=== PATIENT | female | born 1975 | race Caucasian/White ===

== ENCOUNTER 2018-03-08 13:49 | Emergency (ER) | payer BC ==
[2018-03-08] MEDS ORDERED: ONDANSETRON 4 MG/2 ML VIAL IVP ONE ×2 (17:18→23:00)
[2018-03-08] MEDS ORDERED: MECLIZINE HCL 25 MG TAB PO ONE (17:18)
[2018-03-08] MEDS ORDERED: LORazepam 2 MG/ML INJ IVP ONE (17:18)
--- NOTE | 2018-03-08 17:20 | EDPHY ---
H & P Stated Complaint: Dizzy/Nausea Time Seen by Provider: 03/08/18 17:11 HPI/ROS: CHIEF COMPLAINT: Dizziness HISTORY OF PRESENT ILLNESS: 43-year-old female history of ulcerative colitis, awoke yesterday morning with dizziness, sensation of room spinning, nausea, mild non thunderclap headache. Symptoms waxed and waned throughout the day. Symptoms better if closing her eyes or holding her head still, worse if moving her head side to side. No hearing loss. No tinnitus. No barotrauma. No head or neck trauma or manipulation. No recent cold or flu-like symptoms. No sore throat. No otalgia. PRIMARY CARE PROVIDER:Nancy Bustillo PA-C REVIEW OF SYSTEMS: 10 systems reviewed and negative with the exception of the elements mentioned in the history of present illness PAST MEDICAL & SURGICAL HISTORY: Ulcerative colitis SOCIAL HISTORY: nonsmoker no drug use PHYSICAL EXAM (Prior to examination, patient consented to physical exam, hands were washed and my usual and customary physical exam procedures followed) 1) GENERAL: Well-developed, well-nourished, alert and oriented. Appears to be in no acute distress. 2) HEAD: Normocephalic, atraumatic 3) HEENT: Pupils equal, round, reactive to light bilaterally. Sclera anicteric. Right lateral nystagmus from both eyes noted. Nasopharynx, oropharynx, clear, no lesions. MoistDry mucous membranes. Ears bilaterally with normal tympanic membranes. 4) NECK: Full range of motion, no meningeal signs. 5) LUNGS: Clear auscultation bilaterally, no wheezes, no rhonchi, no retractions. 6) HEART: Regular rate and rhythm, no murmur, no heave, no gallop. 7) ABDOMEN: No guarding, no rebound, no focal tenderness, negative McBurney's, negative Palacios's, negative Rovsing's, negative peritoneal sign, 8) MUSCULOSKELETAL: Moving all extremities, no focal areas of tenderness, no obvious trauma. No peripheral edema or discoloration. 9) BACK: No CVA tenderness, no midline vertebral tenderness, no fluctuance, no step-off, no obvious trauma, no visual or palpable abnormality. 10) SKIN: No rash, no petechiae. 11) Psychiatric: Patient is oriented X 3, there is no agitation. 12) NEURO: Awake, alert, and oriented to person, place and time. Answers questions appropriately. There were no obvious focal neurologic abnormalities. No cerebellar dysfunction. Cranial nerves 2 through to 12 intact. Normal steady gait. Upper and lower extremities bilaterally with strength 5 / 5, reflexes 2+. DIFFERENTIAL DIAGNOSIS: In no particular order including but not limited to Meniere's disease, benign positional vertigo, peripheral lesion, central lesion , cervico-cranial vessel dissection - Personal History LMP (Females 10-55): Irregular Current Tetanus/Diphtheria Vaccine: Yes - Medical/Surgical History Hx Asthma: No Hx Chronic Respiratory Disease: No Hx Diabetes: No Hx Cardiac Disease: No Hx Renal Disease: No Hx Cirrhosis: No Hx Alcoholism: No Other PMH: ulcerative collitis, endometriosis - Social History Smoking Status: Never smoked Constitutional: Initial Vital Signs Temperature (C) 37.7 C 03/08/18 14:11 Heart Rate 72 03/08/18 14:11 Respiratory Rate 18 03/08/18 14:11 Blood Pressure 107/74 03/08/18 14:11 O2 Sat (%) 98 03/08/18 14:11 O2 Delivery Mode Room Air Allergies/Adverse Reactions: No Known Allergies Allergy (Unverified 03/08/18 14:16) Home Medications: Medication Instructions Recorded Fish Oil 1,000 mg Softgel 03/08/18 Magnesium 03/08/18 Meclizine HCl [Meclizine HCl 25 mg 25 mg PO QID PRN #15 tab 03/08/18 (RX,OTC)] Methylphenidate 03/08/18 Ondansetron Odt [Zofran Odt] 4 mg PO Q4PRN PRN #10 tab 03/08/18 Pentasa 500 mg 03/08/18 Sertraline HCl 03/08/18 Medical Decision Making - Diagnostics Imaging Results: Imaging Impressions Brain MRI 03/08/18 18:47 Impression: 1. No acute infarct, acute hemorrhage, hydrocephalus, or mass effect. 2. Minimal linear enhancement of the left 7th/8th cranial nerves, which suggests an inflammatory process, without a focal round mass. Consider follow- up imaging. 3. No intraaxial enhancing lesions. 4. Mild left maxillary sinusitis. 5. No brainstem or cerebellar infarcts or enhancing lesions. Findings and recommendations discussed with Emergency Department Physician Field Account Director, Jr Michaels PA-C, at 2139 hours, on March 08, 2018. Final report concurs with initial preliminary interpretation. Images reviewed by myself ED Course/Re-evaluation: 5:20 p.m.: Patient evaluated by myself. She does note sudden-onset dizziness with bilateral eye right-sided nystagmus. Will administer IV fluids, meclizine , Ativan, Zofran and plan on possible Marty maneuver. 6:20 p.m.: Re-evaluation after IV fluids Zofran Ativan and meclizine. No Marty maneuver. She notes significant improvement in symptoms. She is able to move her head around without eliciting dizziness. She remains with a nonfocal exam. On previous exam patient is symptomatic she was noted to have bilateral high right-sided nystagmus . She does complain however of left eye blurry vision and on exam has notable left eye nystagmus only. When the patient cover his left eye she is asymptomatic and there is no nystagmus noted. Wound patient covered her right eye left eye nystagmus is noted as well as blurry vision. The patient otherwise has a nonfocal exam states that she is feeling improvement. I discussed this with secondary supervising physician n Dr. Eri Zuñiga in the ER. Will obtain MRI with specific attention to internal auditory canal. 9:50 p.m.: Re-evaluation, discussed her MRI results. Her nystagmus is now present in bilateral eyes, to the right. Will perform Marty maneuvers. 10:44 p.m.: Marty maneuvers completed. Re-evaluation. Repeat neurologic examination remains nonfocal. patient attempted to ambulate at this time. She is able to ambulate without assistance although notes continued dizziness and blurry vision which does improve when she was on a glasses. I had a lengthy discussion with the patient has been at this time. I offered admission to the hospital however she would like to be discharged stating that she thinks she would feel better if she gets some rest at home in her own bed. I will discharge her home with meclizine and Zofran prescription and Neurology follow- up information. Definitely if she develops new or worsening symptoms to return to the ER immediately for re-evaluation. - Data Points Laboratory Results: Laboratory Results 03/08/18 17:28 03/08/18 17:28 03/08/18 03/08/18 03/08/18 17:28 17:28 17:28 WBC 7.29 10^3/uL 10^3/uL (3.80-9.50) RBC 4.49 10^6/uL 10^6/uL (4.18-5.33) Hgb 15.4 g/dL g/dL (12.6-16.3) Hct 44.6 % % (38.0-47.0) MCV 99.3 fL fL (81.5-99.8) MCH 34.3 pg H pg (27.9-34.1) MCHC 34.5 g/dL g/dL (32.4-36.7) RDW 14.2 % % (11.5-15.2) Plt Count 466 10^3/uL H 10^3/uL (150-400) MPV 9.5 fL fL (8.7-11.7) Neut % (Auto) 77.1 % H % (39.3-74.2) Lymph % (Auto) 15.6 % % (15.0-45.0) [place] % (Auto) 5.8 % % (4.5-13.0) Eos % (Auto) 0.4 % L % (0.6-7.6) Baso % (Auto) 0.7 % % (0.3-1.7) Nucleat RBC Rel Count 0.0 % % (0.0-0.2) Absolute Neuts (auto) 5.62 10^3/uL 10^3/uL (1.70-6.50) Absolute Lymphs (auto) 1.14 10^3/uL 10^3/uL (1.00-3.00) Absolute Monos (auto) 0.42 10^3/uL 10^3/uL (0.30-0.80) Absolute Eos (auto) 0.03 10^3/uL 10^3/uL (0.03-0.40) Absolute Basos (auto) 0.05 10^3/uL 10^3/uL (0.02-0.10) Absolute Nucleated RBC 0.00 10^3/uL 10^3/uL (0-0.01) Immature Gran % 0.4 % % (0.0-1.1) Immature Gran # 0.03 10^3/uL 10^3/uL (0.00-0.10) Sodium 135 mEq/L mEq/L (135-145) Potassium 4.3 mEq/L mEq/L (3.3-5.0) Chloride 103 mEq/L mEq/L (97-110) Carbon Dioxide 25 mEq/l mEq/l (22-31) Anion Gap 7 mEq/L mEq/L (6-14) BUN 19 mg/dL mg/dL (7-23) Creatinine 0.8 mg/dL mg/dL (0.6-1.0) Estimated GFR > 60 Glucose 95 mg/dL mg/dL (70-100) Calcium 9.7 mg/dL mg/dL (8.5-10.4) Beta HCG, Qual NEGATIVE Medications Given: Discontinued Medications Lorazepam (Ativan Injection) 1 mg IVP EDNOW ONE Stop: 03/08/18 17:19 Last Admin: 03/08/18 17:42 Dose: 1 mg Meclizine HCl (Meclizine Hcl) 25 mg PO EDNOW ONE Stop: 03/08/18 17:19 Last Admin: 03/08/18 17:45 Dose: 25 mg Ondansetron HCl (Zofran) 4 mg IVP EDNOW ONE Stop: 03/08/18 17:19 Last Admin: 03/08/18 17:42 Dose: 4 mg Ondansetron HCl (Zofran Odt 4 Mg Prepack#2) 1 btl TAKEHOME EDNOW ONE Stop: 03/08/18 22:54 Last Admin: 03/08/18 22:58 Dose: 1 btl Ondansetron HCl (Zofran) 4 mg IVP EDNOW ONE Stop: 03/08/18 23:01 Last Admin: 03/08/18 23:02 Dose: 4 mg Departure - Departure Disposition: Home, Routine, Self-Care Clinical Impression: Dizziness Condition: Good Instructions: Meclizine (By mouth), Ondansetron (By mouth), Dizziness (ED) Additional Instructions: Return to the ER if you develop new or worsening symptoms, if you develop intractable vomiting or any other symptoms that concern you. Referrals: Nancy Bustillo PA [Primary Care Provider] - 03/12/18 Chente Mcpherson MD [Medical Doctor] - 2-3 days, call for appt. Prescriptions: Meclizine HCl [Meclizine HCl 25 mg (RX,OTC)] 25 mg PO QID PRN #15 tab PRN Reason: Dizziness Ondansetron Odt [Zofran Odt] 4 mg PO Q4PRN PRN #10 tab PRN Reason: Nausea
[2018-03-08 17:37] LABS: PLATELET COUNT 466 10^3/uL (150-400)
[2018-03-08] MEDS ORDERED: GADOBUTROL 10 ML VIAL IVP ONE (20:39)
[2018-03-08] MEDS ORDERED: ONDANSETRON 4MG PREPACK#2 BTL TAKEHOME ONE (22:53)
[2018-03-08 23:07] VITALS: BP 119/70
== END 2018-03-08 23:07 | disposition home or self-care (01) ==
DX: R42 Dizziness and giddiness (principal)
CPT/HCPCS: 96374; A9585; J2060; J2405

== ENCOUNTER 2018-03-10 09:57 | Emergency (ER) | payer BC ==
[2018-03-10 10:27] LABS: PLATELET COUNT 451 10^3/uL (150-400)
--- NOTE | 2018-03-10 10:43 | EDPHY ---
H & P Stated Complaint: dizziness & L ear thrt pain continue--facial asymmetry since ? unk Time Seen by Provider: 03/10/18 10:30 HPI/ROS: CHIEF COMPLAINT: Left facial weakness HISTORY OF PRESENT ILLNESS: 43-year-old female presents with left-sided facial weakness. She was seen in this emergency department 2 days ago for vertigo. MRI of the brain demonstrated linear enhancement of the left 7th and 8th cranial nerves. Vertigo resolved after meclizine and IV Ativan. The patient felt better and went home. She has continued to have vertigo in the past 2 days , but it has improved. She continues to feel slightly unstable with ambulation. This morning she awoke with left facial weakness and decreased hearing in the left ear. No headache or fever. REVIEW OF SYSTEMS: complete 10 point ROS reviewed and is negative except for the noted elements in the HPI - Personal History LMP (Females 10-55): Unknown - Medical/Surgical History Hx Asthma: No Hx Chronic Respiratory Disease: No Hx Diabetes: No Hx Cardiac Disease: No Hx Renal Disease: No Hx Cirrhosis: No Hx Alcoholism: No Hx HIV/AIDS: No Hx Splenectomy or Spleen Trauma: No Other PMH: ulcerative colitis, endometriosis - Social History Smoking Status: Never smoked Alcohol Use: Sober Drug Use: None Additional Social History: with children - Physical Exam Exam: General Appearance: Alert, pleasant Eyes: Pupils equal and round, no conjunctival pallor or injection, horizontal nystagmus ENT, Mouth: Mucous membranes moist Neck: Normal inspection Respiratory: Lungs are clear to auscultation Cardiovascular: Regular rate and rhythm Gastrointestinal: Abdomen is soft and nontender Neurological: A&O, left facial weakness including the forehead, decreased hearing left ear, peripheral motor/sensory intact Skin: Warm and dry Extremities: Normal inspection Psychiatric: Mood and affect normal Constitutional: Initial Vital Signs Temperature (C) 36.8 C 03/10/18 10:02 Heart Rate 82 03/10/18 10:02 Respiratory Rate 20 03/10/18 10:02 Blood Pressure 132/80 H 03/10/18 10:02 O2 Sat (%) 99 03/10/18 10:02 O2 Delivery Mode Room Air Allergies/Adverse Reactions: No Known Allergies Allergy (Verified 03/10/18 09:59) Home Medications: Medication Instructions Recorded Fish Oil 1,000 mg Softgel 03/08/18 Magnesium 03/08/18 Meclizine HCl [Meclizine HCl 25 mg 25 mg PO QID PRN #15 tab 03/08/18 (RX,OTC)] Pentasa 500 mg 03/08/18 Sertraline HCl 03/08/18 Purinethol 50 mg (*) 03/10/18 Valacyclovir HCl [Valtrex] 1,000 mg PO TID #21 tab 03/10/18 predniSONE 1 tab PO DAILY #15 tab 03/10/18 Medical Decision Making Procedures: Procedure: Lumbar puncture. Indication: Vertigo, left facial weakness, abnormal MRI After verbal informed consent from patient explaining the risks of lumbar puncture including infection, bleeding, spinal headache and neurologic damage, a lumbar puncture was performed with the patient in the sitting position after the patient was prepped and draped in the usual fashion. The L4-5 interspace was anesthetized with 1% lidocaine. Approximately 4 cc of clear fluid was obtained. Opening pressure was not obtained. There were no complications. The procedure was performed by myself. ED Course/Re-evaluation: Patient presents with left sided facial weakness and an abnormal MRI. I consulted Dr. Arzola on this patient's arrival. He suggests an LP to rule out VZV meningitis. Repeat MRI not indicated. Prior MRI explains sx today. If the LP LP results are normal, plan to discharge home on Valtrex and prednisone. Will see the patient in the office this week. 12:45 p.m.-initial LP results reveal no white blood cells and normal protein. Gram stain is negative. No evidence of infection. Decadron 10 mg IV given. Warning signs discussed and follow-up instructions given. The patient will follow up with Dr. Arzola in the office. Differential Diagnosis: Differential diagnosis includes though not limited to be CV meningitis, encephalitis, TIA, CVA, Holt's palsy - Data Points Laboratory Results: Laboratory Results 03/10/18 10:20 03/10/18 10:20 03/10/18 03/10/18 03/10/18 12:20 11:55 11:55 WBC RBC Hgb Hct MCV MCH MCHC RDW Plt Count MPV Neut % (Auto) Lymph % (Auto) [place] % (Auto) Eos % (Auto) Baso % (Auto) Nucleat RBC Rel Count Absolute Neuts (auto) Absolute Lymphs (auto) Absolute Monos (auto) Absolute Eos (auto) Absolute Basos (auto) Absolute Nucleated RBC Immature Gran % Immature Gran # Sodium Potassium Chloride Carbon Dioxide Anion Gap BUN Creatinine Estimated GFR Glucose Calcium CSF Tube Number 1 4 CSF Appearance CLEAR CLEAR (CLEAR) (CLEAR) CSF Color COLORLESS COLORLESS (COLORLESS) (COLORLESS) CSF Supernatant COLORLESS COLORLESS (COLORLESS) (COLORLESS) CSF WBC 2 /mm3 /mm3 0 /mm3 /mm3 (0-5) (0-5) CSF RBC 26 /mm3 H /mm3 5 /mm3 H /mm3 (0-0) (0-0) CSF Glucose 57 mg/dL mg/dL (50-75) CSF Total Protein 51 mg/dL mg/dL (12-60) CSF HSV I&II DNA (PCR) Pending 03/10/18 03/10/18 10:20 10:20 WBC 5.58 10^3/uL 10^3/uL (3.80-9.50) RBC 4.40 10^6/uL 10^6/uL (4.18-5.33) Hgb 15.2 g/dL g/dL (12.6-16.3) Hct 44.4 % % (38.0-47.0) MCV 100.9 fL H fL (81.5-99.8) MCH 34.5 pg H pg (27.9-34.1) MCHC 34.2 g/dL g/dL (32.4-36.7) RDW 14.6 % % (11.5-15.2) Plt Count 451 10^3/uL H 10^3/uL (150-400) MPV 9.4 fL fL (8.7-11.7) Neut % (Auto) 63.6 % % (39.3-74.2) Lymph % (Auto) 24.7 % % (15.0-45.0) [place] % (Auto) 7.9 % % (4.5-13.0) Eos % (Auto) 2.3 % % (0.6-7.6) Baso % (Auto) 1.1 % % (0.3-1.7) Nucleat RBC Rel Count 0.0 % % (0.0-0.2) Absolute Neuts (auto) 3.55 10^3/uL 10^3/uL (1.70-6.50) Absolute Lymphs (auto) 1.38 10^3/uL 10^3/uL (1.00-3.00) Absolute Monos (auto) 0.44 10^3/uL 10^3/uL (0.30-0.80) Absolute Eos (auto) 0.13 10^3/uL 10^3/uL (0.03-0.40) Absolute Basos (auto) 0.06 10^3/uL 10^3/uL (0.02-0.10) Absolute Nucleated RBC 0.00 10^3/uL 10^3/uL (0-0.01) Immature Gran % 0.4 % % (0.0-1.1) Immature Gran # 0.02 10^3/uL 10^3/uL (0.00-0.10) Sodium 139 mEq/L mEq/L (135-145) Potassium 4.4 mEq/L mEq/L (3.3-5.0) Chloride 104 mEq/L mEq/L (97-110) Carbon Dioxide 29 mEq/l mEq/l (22-31) Anion Gap 6 mEq/L mEq/L (6-14) BUN 19 mg/dL mg/dL (7-23) Creatinine 0.8 mg/dL mg/dL (0.6-1.0) Estimated GFR > 60 Glucose 76 mg/dL mg/dL (70-100) Calcium 9.5 mg/dL mg/dL (8.5-10.4) CSF Tube Number CSF Appearance CSF Color CSF Supernatant CSF WBC CSF RBC CSF Glucose CSF Total Protein CSF HSV I&II DNA (PCR) Microbiology Results: MICROBIOLOGY 03/10/18 11:55 Cerebral Spinal Fluid Gram Stain - Final Medications Given: Discontinued Medications Dexamethasone (Decadron Injection) 10 mg IVP EDNOW ONE Stop: 03/10/18 12:46 Last Admin: 03/10/18 12:54 Dose: 10 mg Sodium Chloride (Ns) 1,000 mls @ 0 mls/hr IV ONCE ONE; Wide Open PRN Reason: Protocol Stop: 03/10/18 12:07 Last Admin: 03/10/18 12:08 Dose: 1,000 mls Departure - Departure Disposition: Home, Routine, Self-Care Clinical Impression: Holt's palsy Condition: Good Instructions: Holt Palsy (ED) Additional Instructions: Your MRI shows inflammation of the 7th and 8th cranial nerves. This inflammation is causing the facial weakness and decreased hearing. This is most likely caused by a virus. I have prescribed a steroid to reduce the inflammation and Valtrex to treat a possible viral infection. Referrals: Nancy Bustillo PA [Primary Care Provider] - As per Instructions Tod Arzola DO [Doctor of Osteopathy] - As per Instructions (Call tomorrow morning to make an appointment.) Prescriptions: predniSONE 1 tab PO DAILY #15 tab Valacyclovir HCl [Valtrex] 1,000 mg PO TID #21 tab
[2018-03-10] MEDS ORDERED: NS 1,000 ML IV ONE (12:06)
[2018-03-10 12:30] VITALS: BP 107/62
[2018-03-10] MEDS ORDERED: DEXAMETHASONE 10 MG/ML VIAL IVP ONE (12:45)
[2018-03-10] MEDS ORDERED: DEXAMETHASONE 4 MG/ML VIAL ONE (12:48)
== END 2018-03-10 13:11 | disposition home or self-care (01) ==
PROC: 009U3ZX Drainage of Spinal Canal, Percutaneous Approach, Diagnostic (ICD-10-PCS; principal; 2018-03-10)
DX: G51.0 Bell's palsy (principal); E86.9 Volume depletion, unspecified
CPT/HCPCS: 96374; J1100

== ENCOUNTER 2018-03-12 11:26 | Emergency (ER) | payer BC ==
[2018-03-12] MEDS ORDERED: ACETAMINOPHEN 500 MG TAB PO ONE (11:33)
[2018-03-12] MEDS ORDERED: NS 1,000 ML IV ONE (12:49)
--- NOTE | 2018-03-12 13:42 | EDPHY ---
H & P Time Seen by Provider: 03/12/18 12:57 HPI/ROS: HPI Headache, facial numbness. 43-year-old female by private vehicle with her . This patient was seen in our emergency department on March 08 with complaint of with complaint of vertigo. She had an MRI of the brain at that time with and without contrast. This showed minimal linear enhancement of her 7th and 8th cranial nerves on the left side likely representing some mild inflammation. She then returned on March 10. She was seen for headache as well as left-sided facial upper and lower weakness and numbness. Neurology was consulted. This was Dr. Redding. He recommended an LP be performed in the emergency department. This was done and resulted as normal. Her HSV viral assay on this study was normal as well. 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 She was prescribed Valtrex as well as prednisone. She reports that she has been taking her Valtrex and prednisone since Sunday. She reports that last night she had a moderate headache. She reports that this morning she then woke up and had a fever and felt that her facial weakness and numbness was worse. She was instructed follow up with Neurology, Dr. Mo Jain this week for re- evaluation. However, she was not able to get an appointment until March 20. She took some Tylenol of her own prior to coming to the emergency department and her headache has resolved. She now complains of persisting left- sided facial weakness. She denies camping on the [facility] or [facility]. She states in October she was bike riding through the [place] in [place]. She does not recall any tick bites. 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 ROS: Constitutional: As above, no chills. No weakness. Eyes: No discharge. No changes in vision. ENT: No sore throat. No nasal congestion or rhinorrhea. Respiratory: No cough. No shortness of breath. Cardiac: No chest pain, no palpitations. Gastrointestinal: No abdominal pain, no vomiting, no diarrhea. Genitourinary: No hematuria. No dysuria or increased frequency with urination. Musculoskeletal: No back pain. No neck pain. No myalgias or arthralgias. Skin: No rashes. Neurological: As above. As above. Past medical history: Ulcerative colitis, endometriosis. Social history: Nonsmoker. Here with her . No alcohol. Physical Exam: General Appearance: Alert, no distress. This patient is responding to questions appropriately and in full sentences. This patient appears well- hydrated and well-nourished. Eyes: Pupils equal and round no pallor or injection. No lid edema, erythema or injection. ENT, Mouth: Mucous membranes are moist. The pharyngeal tissues are unremarkable. No edema or swelling. No asymmetry suggestive of abscess. No erythema or exudates. No tongue deviation. Respiratory: There are no retractions, lungs are clear to auscultation with good air movement bilaterally. Cardiovascular: Regular rate and rhythm. No murmur. Gastrointestinal: Abdomen is soft and nontender, no masses, bowel sounds normal. No focal tenderness at McBurney's point. No Palacios sign. Neurological: Motor sensory function is grossly intact. Cranial nerves are normal except for an upper and lower facial palsy on the left. Gait is normal. Skin: Warm and dry, no rashes. Musculoskeletal: Neck is supple and nontender. No pain on flexion of her neck. No cervical, submental, submandibular lymphadenopathy. Extremities are symmetrical. All joints range without pain or impingement. Psychiatric: No agitation. No depression. Database: EKG: Imaging: MRI brain with and without contrast: Negative study. The inflammation seen on the prior study has resolved. Results were discussed with staff radiologist Dr. Aniceto Acosta. Procedures: Emergency department course: Triage vital signs reviewed. She had a temperature of 38.5 degrees in triage. Vital signs are otherwise normal. Repeat temperature at 12:30 p.m. Is 37.7. Her neurologic exam is nonfocal except for facial palsy on the left as discussed. IV was placed in triage. She was started on IV normal saline with 500 cc to 1 L to be given over the next hour. 2:15 p.m., spoke with on-call neurologist Dr. Mo Jain. Case discussed in detail. He feels that a repeat lumbar puncture is not indicated. He feels that if there are no significant changes on the MRI that she can follow up with him in his office as an outpatient. He stated that he would get her in to be seen in the next day or 2. I will also plan on consulting with Infectious Disease and having her follow up with them as well. The patient is currently getting her MRI. 3:20 p.m., patient re-evaluated resting comfortably at this time. Repeat neurologic Assessment is nonfocal and unchanged except noted above. Results of MRI and blood work discussed with her and her . My conversation with Dr. Mo Jain of the neurology service was also discussed with the 2 of them. A blood culture has also been taken. She has remained afebrile. She feels comfortable going home and I feel she is safe for discharge. Follow-up with Dr. Jain as well as Infectious Disease discussed with her and her . Return to emergency department precautions reviewed. All of their questions were answered. The patient was discharged home in good condition with her . 3:30 p.m., spoke with infectious disease specialist Dr. Nguyen Flynn. Case discussed in detail with her. She recommends follow-up in their office with Dr. Kade Madrigal who is a Lyme disease specialist. Lyme antibody assay ordered. Blood culture results currently pending. They will call the patient for appointment time. Infectious disease follow-up and consultation discuss with the patient and her . Differential Diagnosis: The differential diagnosis on this patient includes but is not limited to Holt' s palsy, viral syndrome, Lyme disease. Meningitis, encephalitis, CVA unlikely. This represents a partial list of diagnoses considered. These considerations are based on history, physical exam, past history, reassessment and diagnostic testing. Smoking Status: Never smoked Constitutional: Initial Vital Signs Temperature (C) 38.5 C H 03/12/18 11:31 Heart Rate 87 03/12/18 11:31 Respiratory Rate 16 03/12/18 11:31 Blood Pressure 116/67 03/12/18 11:31 O2 Sat (%) 95 03/12/18 11:31 O2 Delivery Mode Room Air Allergies/Adverse Reactions: No Known Allergies Allergy (Verified 03/12/18 11:29) Home Medications: Medication Instructions Recorded Fish Oil 1,000 mg Softgel 03/08/18 Magnesium 03/08/18 Meclizine HCl [Meclizine HCl 25 mg 25 mg PO QID PRN #15 tab 03/08/18 (RX,OTC)] Pentasa 500 mg 03/08/18 Sertraline HCl 03/08/18 Purinethol 50 mg (*) 03/10/18 Valacyclovir HCl [Valtrex] 1,000 mg PO TID #21 tab 03/10/18 predniSONE 1 tab PO DAILY #15 tab 03/10/18 Ondansetron 03/12/18 Medical Decision Making - Data Points Laboratory Results: Laboratory Results 03/12/18 13:42 03/12/18 13:02 Microbiology Results: MICROBIOLOGY 03/12/18 14:57 Blood Blood Culture - Final 03/12/18 14:50 Blood Blood Culture - Final Medications Given: Discontinued Medications Acetaminophen (Tylenol) 1,000 mg PO EDNOW ONE Stop: 03/12/18 11:34 Last Admin: 03/12/18 11:35 Dose: 1,000 mg Sodium Chloride (Ns) 1,000 mls @ 3,000 mls/hr IV ONCE ONE Stop: 03/12/18 13:08 Last Admin: 03/12/18 13:19 Dose: 1,000 mls Departure - Departure Disposition: Home, Routine, Self-Care Clinical Impression: Holt's palsy, Fever Condition: Good Instructions: Holt Palsy (ED) Additional Instructions: Read and follow provided instructions. Follow-up with Dr. Mo Jain or 1 of his partners with the neurology service in the next 1-2 days. Call their office for appointment time when you get home today. Dr. Jain told me that they would get she when in the next couple of days. I also spoke with Dr. Nguyen Flynn of the Infectious Disease service. They will call you for a follow-up appointment. You will likely be seen by a Lyme disease specialist named Dr. Kade Madrigal. If you do not hear from them by tomorrow late morning call their office for appointment time. Take Tylenol as directed for fever control. Continue taking Valtrex and prednisone as prescribed. Ibuprofen dosin mg every 6 hours with meals for the next 3 days only. Take only as needed for pain. Return to the emergency department for worsening symptoms or other serious concerns. Referrals: Mo Jain MD [Medical Doctor] - As per Instructions [facility] (ED,. [Edm Groups for Call Sched] - As per Instructions
[2018-03-12 13:49] LABS: PLATELET COUNT 430 10^3/uL (150-400)
[2018-03-12] MEDS ORDERED: GADOBUTROL 10 ML VIAL IVP ONE (14:23)
[2018-03-12 15:52] VITALS: BP 98/56
== END 2018-03-12 15:52 | disposition home or self-care (01) ==
DX: G51.0 Bell's palsy (principal); R50.9 Fever, unspecified
CPT/HCPCS: 86618-90; A9585